=== PATIENT | female | born 2000 | race Caucasian/White ===

== ENCOUNTER 2020-12-18 11:44 | Emergency (ER) | payer OTHER ==
[2020-12-18] MEDS ORDERED: ALBUTEROL SO4 0.083% IH SOL 2.5 MG/3 ML VIAL.NEB. NEB ONE ×2 (12:01→12:03)
[2020-12-18 12:11] VITALS: BP 127/84; TEMP 98.9; BMI 19.3
[2020-12-18] MEDS ORDERED: ALBUTEROL SO4 2.5/IPRATROPIUM 0.5 INH SOL 3 ML VIAL.NEB. NEB ONE (12:30)
[2020-12-18 12:52] VITALS: PULSE 125
== END 2020-12-18 13:28 | disposition home or self-care (01) ==
LOC: FER 11:44
PROC: 3E0F7GC Introduction of Other Therapeutic Substance into Respiratory Tract, Via Natural or Artificial Opening (ICD-10-PCS; principal; 2020-12-18)
DX: R06.02 Shortness of breath (principal)
CPT/HCPCS: 99284-25